=== PATIENT | female | born 1995 | race Caucasian/White ===

== ENCOUNTER → 2017-02-18 | Outpatient (REF) | payer MEDICARE, MEDICAID | LOC: M SFHCPLAZ 11:54 | PROVIDERS: ATTEND Family Medicine | DX: Z91.040 Latex allergy status (principal); E03.9 Hypothyroidism, unspecified ==

== ENCOUNTER → 2018-08-09 | Outpatient (REF) | payer MEDICARE, MEDICAID | LOC: M SFHCPLAZ 13:48 | DX: E03.9 Hypothyroidism, unspecified (principal) ==

== ENCOUNTER → 2019-12-01 | Outpatient (CLI) | payer MEDICARE, MEDICAID ==
--- NOTE | 2019-12-01 12:23 | REP ---
Renal ultrasound: Comparison is 12/27/2009. The patient has history of neurogenic bladder. The right kidney measures 9.5 x 3.6 x 3.0 cm. The left kidney measures 9.7 x 2.5 x 2.7 meters. The kidneys are in the low normal size range. There is mild bilateral hydronephrosis. This is unchanged from the prior study. Renal cortical echogenicity is normal bilaterally. There are no solid or cystic renal masses. There are no renal calculi. The patient has a tracheostomy and is unable to suspend respirations. Additionally, the acoustic windows for ultrasound scanning are limited. Therefore, the study is technically difficult. Impression: Chronic mild hydronephrosis. Technically difficult study. Electronically Signed by Leroy Friedman MD 12/01/2019 12:14 P
--- NOTE | 2019-12-01 12:27 | REP ---
Bladder ultrasound: Comparison is 12/07/2009. The patient has history of neurogenic bladder. The bladder castillo are thickened and trabeculated. This is similar to the prior study and consistent with neurogenic bladder. There are small bladder diverticula bilaterally. These are similar to the prior study. There is no postvoid image as the patient performs periodic bladder catheterization. Impression: There is no interval change. Electronically Signed by Leroy Friedman MD 12/01/2019 12:19 P
== END ==
LOC: M RAD 10:01
PROVIDERS: ATTEND Nurse Practitioner Family
DX: N31.9 Neuromuscular dysfunction of bladder, unspecified (principal); N32.3 Diverticulum of bladder; N13.30 Unspecified hydronephrosis

== ENCOUNTER → 2020-01-10 | Outpatient (REF) | payer MEDICARE, MEDICAID | LOC: M SFHCPLAZ 14:15 | PROVIDERS: ATTEND Family Medicine | DX: E03.9 Hypothyroidism, unspecified (principal) ==

== ENCOUNTER → 2020-12-24 | Outpatient (CLI) | payer MEDICARE, MEDICAID ==
[2020-12-24 15:04] LABS: BLOOD UREA NITROGEN 22 MG/DL (7-18); CREATININE FOR GFR 0.51 MG/DL (0.55-1.30); GLUCOSE, FASTING 84 MG/DL (70-100)
[2020-12-24 15:05] LABS: ALBUMIN 3.7 GM/DL (3.2-5.2); ALT/SGPT 21 U/L (12-78); BILIRUBIN,TOTAL 0.3 MG/DL (0.2-1.0); CALCIUM LEVEL 10.1 MG/DL (8.5-10.1); CARBON DIOXIDE LEVEL 28 MEQ/L (21-32); CHLORIDE LEVEL 103 MEQ/L (98-107); CHOLESTEROL LEVEL 180 MG/DL (<200); CHOLESTEROL RISK RATIO 2.903 (<5); GLOMERULAR FILTRATION RATE > 60.0 (>60); HDL CHOLESTEROL 62 MG/DL (>40); LDL CHOLESTEROL 89 MG/DL (<100); NON-HDL-C 118 MG/DL; POTASSIUM SERUM 4.3 MEQ/L (3.5-5.1); SODIUM LEVEL 140 MEQ/L (136-145); TOTAL PROTEIN 7.7 GM/DL (6.4-8.2); TRIGLYCERIDES LEVEL 144 MG/DL (<150)
== END ==
LOC: M PLALAB 10:49
PROVIDERS: ATTEND Student in an Organized Health Care Education/Training Program
DX: E03.9 Hypothyroidism, unspecified (principal); Z93.1 Gastrostomy status

== ENCOUNTER → 2021-01-14 | Outpatient (CLI) | payer MEDICARE, MEDICAID ==
--- NOTE | 2021-01-14 15:36 | REP ---
INDICATION: N13.30 HYDRONEPHROSIS. COMPARISON: Renal ultrasound dated 12/01/2019. TECHNIQUE: Multiple real-time and color Doppler ultrasound images of the kidneys and bladder. FINDINGS: The right kidney measures 9.3 x 4.1 x 2.7 cm. The left kidney measures 9.0 x 3.8 x 4.1 cm. The kidneys are in the low normal size range. There is mild/moderate hydronephrosis bilaterally. There are multiple ring shaped echogenic foci in the right renal pelvis compatible with numerous right renal calculi or possibly calcified right renal pyramids. This is a distinct change from the comparison study. There is a 6 x 4 mm left renal calculus. No other left renal calculi are identified. No definite solid or cystic renal masses are identified. The study is technically difficult because of the patient's inability to breath hold during the examination and because of limited acoustic window. Bladder: Gallardo catheter balloon is identified. The bladder is nondistended and cannot be otherwise evaluated by ultrasound at this time period. IMPRESSION: Mild/moderate bilateral hydronephrosis. Probable multiple right renal calculi as a distinct change from the prior study. Single left renal calculus. No definite solid or cystic renal masses. Bladder cannot be adequately evaluated by ultrasound as it is nondistended. Gallardo catheter is identified. Technically difficult study. Consider follow-up CT. If felt clinically indicated. To evaluate for renal calculi. <Electronically signed by Leroy Friedman > 01/14/21 1535
== END ==
LOC: M WHC 12:01
PROVIDERS: ATTEND Nurse Practitioner Family
DX: N13.30 Unspecified hydronephrosis (principal); N20.0 Calculus of kidney

== ENCOUNTER → 2021-03-07 | Outpatient (CLI) | payer MEDICARE, MEDICAID ==
[~2021-03-07] MED LIST: ACET325C5 GT; ALBU83IN INH; CALC1CHW4 PO; CETI5SOL3 PO; DIMEELX PO; DITR5TAB PO; EPIP0.3I2 IM; FLUT15.820; FLUT44IN INH; LEVO50TA5 GT; MIRA3350 GT; MULTLIQ7 PO; SYNT75TA GT; VITA-243 PO; VITA200012 PO
== END ==
LOC: M LABSMTC 11:06
PROVIDERS: ATTEND Anesthesiology
DX: Z01.818 Encounter for other preprocedural examination (principal); Z11.52 Encounter for screening for COVID-19

== ENCOUNTER → 2021-03-12 | Outpatient (CLI) | payer MEDICARE, MEDICAID ==
[~2021-03-12] MED LIST changes: +EMLA CREAM 5GM TUBE (LIDOCAINE/PRILOCAINE) As Ordered ONE; +ISOVUE-370 76% 100ML VIAL As Ordered ONE
[2021-03-12 07:53] VITALS: BP 139/80
--- NOTE | 2021-03-12 10:34 | REP ---
INDICATION: HYDRONEPHROSIS, KIDNEY STONES COMPARISON: Ultrasound 01/14/2021. TECHNIQUE: CT Scan of the abdomen and pelvis was performed without intravenous contrast. Sagittal and coronal reconstruction images performed. FINDINGS: Lung bases: Unremarkable. Liver: Grossly unremarkable. Gallbladder: Unremarkable. Spleen: Grossly unremarkable. Adrenals: Normal. Pancreas: Grossly unremarkable.. Kidneys: There is bilateral renal cortical thinning. There is moderate bilateral hydronephrosis. Multiple ill-defined calcifications in the region of the lower pole the right kidney likely represent calcifications of renal pyramids. Similar appearing calcifications are seen to a lesser extent involving the mid to lower left kidney. Ureters demonstrate no dilatation or calculus. Small and large bowel: There is a large amount of fecal material throughout the colon. There is a PEG tube in good position within the stomach. Free fluid: There is small amount of free fluid in the pelvis. Abdominal aorta: No aneurysm. Adenopathy: None. Appendix: Not inflamed. Osseous structures: There is severe right rotatory thoracolumbar scoliosis. Spinal dysraphism is noted once again of the lower lumbar spine. Pelvis: No mass. There is a Gallardo catheter in a collapsed urinary bladder. TONGUE AND GROOVE MACHINE OPERATOR shunt enters the right upper quadrant of the abdomen with the distal tip in the pelvis. IMPRESSION: There is bilateral renal cortical thinning. There is moderate bilateral hydronephrosis. Multiple ill-defined calcifications in the region of the lower pole the right kidney likely represent calcifications of renal pyramids. Similar appearing calcifications are seen to a lesser extent involving the mid to lower left kidney. <Electronically signed by Leroy Anna > 03/12/21 1031
== END ==
LOC: M SDC 07:38
PROVIDERS: ATTEND Nurse Practitioner Family
DX: N13.30 Unspecified hydronephrosis (principal); N20.0 Calculus of kidney

== ENCOUNTER → 2021-03-19 | Outpatient (REF) | payer MEDICARE, MEDICAID ==
[~2021-03-19] MED LIST changes: -EMLA CREAM 5GM TUBE (LIDOCAINE/PRILOCAINE) As Ordered ONE; -ISOVUE-370 76% 100ML VIAL As Ordered ONE
== END ==
LOC: M SMT 12:36
PROVIDERS: ATTEND Urology
DX: N31.9 Neuromuscular dysfunction of bladder, unspecified (principal); Z79.899 Other long term (current) drug therapy
CPT/HCPCS: 87088; 87186; G0463

== ENCOUNTER → 2021-04-08 | Outpatient (REF) | payer MEDICARE, MEDICAID ==
[2021-04-08 19:42] LABS: ALBUMIN 3.9 GM/DL (3.2-5.2); ALT/SGPT 19 U/L (12-78); BILIRUBIN,TOTAL 0.2 MG/DL (0.2-1.0); BLOOD UREA NITROGEN 22 MG/DL (7-18); CALCIUM LEVEL 9.5 MG/DL (8.5-10.1); CARBON DIOXIDE LEVEL 27 MEQ/L (21-32); CHLORIDE LEVEL 105 MEQ/L (98-107); CREATININE FOR GFR 0.44 MG/DL (0.55-1.30); GLOMERULAR FILTRATION RATE > 60.0 (>60); GLUCOSE, FASTING 79 MG/DL (70-100); POTASSIUM SERUM 4.2 MEQ/L (3.5-5.1); SODIUM LEVEL 139 MEQ/L (136-145); TOTAL PROTEIN 7.8 GM/DL (6.4-8.2)
== END ==
LOC: M SFHCPLAZ 14:12
PROVIDERS: ATTEND Family Medicine
DX: Z87.440 Personal history of urinary (tract) infections (principal)

== ENCOUNTER → 2021-05-16 | Outpatient (CLI) | payer MEDICARE, MEDICAID | LOC: M PT 07:36 | PROVIDERS: ATTEND Internal Medicine Nephrology | DX: Q05.1 Thoracic spina bifida with hydrocephalus (principal) ==

== ENCOUNTER 2021-06-24 15:51 | Inpatient (IN) | payer MEDICARE, MEDICAID ==
[~2021-06-24] VITALS: Ht 121.9 cm; Wt 29.9 kg
[~2021-06-24 15:51] MED LIST changes: +CETI5SOL3 GT; -CETI5SOL3 PO; -FLUT15.820; +FLUT15.820 NARES; +MULTLIQ7 GT; -MULTLIQ7 PO; +VITA200012 GT; -VITA200012 PO
[2021-06-24 17:37] LABS: MEAN CORPUSCULAR HEMOGLOBIN 29.2 pg (27.0-33.0); MEAN CORPUSCULAR HGB CONC 32.7 g/dl (32.0-36.5); MEAN CORPUSCULAR VOLUME 89.4 fl (80.0-96.0); PLATELET COUNT, AUTOMATED 256 10^3/uL (150-450); RED BLOOD COUNT 5.48 10^6/uL (4.00-5.40); WHITE BLOOD COUNT 15.1 10^3/uL (4.0-10.0)
[2021-06-24] MEDS ORDERED: OXYB5TAB10 GT (17:41)
[2021-06-24] MEDS ORDERED: CALC1250 GT (17:41)
[2021-06-24] MEDS ORDERED: ASCO250T20 GT (17:41)
[2021-06-24] MEDS ORDERED: ACET160S6 GT (17:44)
[2021-06-24] MEDS ORDERED: HOME MED LIST COMPLETE! XX SCH (17:45)
[2021-06-24 18:01] LABS: ALBUMIN 3.5 GM/DL (3.2-5.2); ALT/SGPT 17 U/L (12-78); BILIRUBIN,TOTAL 0.6 MG/DL (0.2-1.0); BLOOD UREA NITROGEN 20 MG/DL (7-18); CALCIUM LEVEL 10.2 MG/DL (8.5-10.1); CARBON DIOXIDE LEVEL 27 MEQ/L (21-32); CHLORIDE LEVEL 100 MEQ/L (98-107); CREATININE FOR GFR 0.54 MG/DL (0.55-1.30); GLOMERULAR FILTRATION RATE > 60.0 (>60); GLUCOSE, FASTING 98 MG/DL (70-100); POTASSIUM SERUM 4.5 MEQ/L (3.5-5.1); SODIUM LEVEL 134 MEQ/L (136-145); TOTAL PROTEIN 7.4 GM/DL (6.4-8.2)
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
[2021-06-24] MEDS ORDERED: ALBUTEROL SULFATE 2.5 MG/0.5 ML INH NEB SOLN INH PRN (18:35)
[2021-06-24] MEDS ORDERED: PILL CUTTER 1 EACH XX PRN (19:05)
[2021-06-24] MEDS: FLUTICASONE HFA 44 MCG 10.6GM INHALER (FLOVENT) INH SCH (20:00)
[2021-06-24] MEDS: CHLORHEXIDINE GLUCONATE 0.12 % 15ML UDC (PERIDEX ORAL RINSE) MT SCH (20:32)
[2021-06-24] MEDS: HEPARIN SOD (PORCINE) 5000UNITS/ML 1ML VIAL/SYRINGE SQ SCH (20:33)
[2021-06-24] MEDS: ACETAMINOPHEN TAB 650MG DOSE (2X325MG) PO PRN (20:34)
[2021-06-24] MEDS: oxyBUTYnin 5 MG TAB GT SCH (20:34)
[2021-06-24] MEDS ORDERED: CALCIUM CARB SUSP 1250MG/5ML UNIT DOSE CUP GT SCH (21:00)
[2021-06-24 22:00] VITALS: BP 109/73
[2021-06-25] MEDS ORDERED: LEVOTHYROXINE 50MCG TABLET (0.05MG) GT SCH (06:00)
[2021-06-25] MEDS: ACETAMINOPHEN TAB 650MG DOSE (2X325MG) PO PRN (06:17)
[2021-06-25] MEDS: HEPARIN SOD (PORCINE) 5000UNITS/ML 1ML VIAL/SYRINGE SQ SCH ×2 (06:18→14:53)
[2021-06-25 06:29] VITALS: BP 97/69
[2021-06-25 08:15] LABS: BASO % 0.3 % (0.0-1.0); EOS % 0.3 % (0.0-3.0); HEMATOCRIT 45.9 % (36.0-47.0); HEMOGLOBIN 15.1 g/dl (12.0-15.5); LYMPH # 1.4 10^3/uL (1.5-5.0); LYMPH % 11.7 % (24.0-44.0); MEAN CORPUSCULAR HEMOGLOBIN 29.3 pg (27.0-33.0); MEAN CORPUSCULAR HGB CONC 32.9 g/dl (32.0-36.5); MONO # 0.7 10^3/uL (0.0-0.8); MONO % 5.7 % (2.0-8.0); NEUTROPHILS # 9.9 10^3/uL (1.5-8.5); NEUTROPHILS % 81.7 % (36.0-66.0); PLATELET COUNT, AUTOMATED 235 10^3/uL (150-450); RED BLOOD COUNT 5.16 10^6/uL (4.00-5.40); WHITE BLOOD COUNT 12.1 10^3/uL (4.0-10.0)
[2021-06-25 08:50] LABS: BLOOD UREA NITROGEN 24 MG/DL (7-18); CALCIUM LEVEL 9.4 MG/DL (8.5-10.1); CARBON DIOXIDE LEVEL 27 MEQ/L (21-32); CHLORIDE LEVEL 103 MEQ/L (98-107); CREATININE FOR GFR 0.48 MG/DL (0.55-1.30); GLOMERULAR FILTRATION RATE > 60.0 (>60); GLUCOSE, FASTING 93 MG/DL (70-100); MAGNESIUM LEVEL 2.6 MG/DL (1.8-2.4); POTASSIUM SERUM 4.6 MEQ/L (3.5-5.1); SODIUM LEVEL 137 MEQ/L (136-145)
[2021-06-25] MEDS ORDERED: MIRALAX *UNIT DOSE* 17GM PACKET GT SCH (09:00)
[2021-06-25] MEDS ORDERED: ENOXAPARIN 40MG/0.4ML SYRINGE (J1650 PER 10MG) SC SCH (09:00)
[2021-06-25] MEDS ORDERED: CETIRIZINE (ZyrTEC) 5 MG/5 ML UDC DYE FREE GT SCH (09:00)
[2021-06-25] MEDS ORDERED: ASCORBIC ACID 250 MG TAB GT SCH (09:00)
[2021-06-25] MEDS ORDERED: FLUTICASONE PROP 0.05% NASAL SPRAY 16 GM (FLONASE) NARES SCH (09:00)
[2021-06-25] MEDS: oxyBUTYnin 5 MG TAB GT SCH ×2 (09:09→14:53)
[2021-06-25] MEDS: CHLORHEXIDINE GLUCONATE 0.12 % 15ML UDC (PERIDEX ORAL RINSE) MT SCH (09:09)
[2021-06-25] MEDS: FLUTICASONE HFA 44 MCG 10.6GM INHALER (FLOVENT) INH SCH (09:44)
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
[2021-06-25 14:00] VITALS: BP 148/99
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
[2021-06-26] MEDS ORDERED: LEVOTHYROXINE 75MCG TABLET (0.075MG) GT SCH (06:00)
== END 2021-06-25 17:10 | disposition home health service (06) | DRG 935 ==
LOC: M MS5PR 16:11
PROVIDERS: ADMIT Family Medicine; ATTEND Internal Medicine
DX: T24.211A Burn of second degree of right thigh, initial encounter (principal); Q07.03 Arnold-Chiari syndrome with spina bifida and hydrocephalus; Q67.5 Congenital deformity of spine; G47.35 Congenital central alveolar hypoventilation syndrome; X11.8XXA Contact with other hot tap-water, initial encounter; Y93.E1 Activity, personal bathing and showering; Y92.012 Bathroom of single-family (private) house as the place of occurrence of the external cause; Y99.8 Other external cause status; N31.9 Neuromuscular dysfunction of bladder, unspecified; T31.0 Burns involving less than 10% of body surface; N18.9 Chronic kidney disease, unspecified; E03.9 Hypothyroidism, unspecified; R32 Unspecified urinary incontinence; Z93.0 Tracheostomy status; Z98.2 Presence of cerebrospinal fluid drainage device; Z93.1 Gastrostomy status; Z79.899 Other long term (current) drug therapy; Z20.822 Contact with and (suspected) exposure to COVID-19

== ENCOUNTER → 2021-06-29 | Outpatient (REF) | payer MEDICARE, MEDICAID ==
[~2021-06-29] MED LIST changes: +ACET160S6 GT; +ASCO250T20 GT; +CALC1250 GT; +OXYB5TAB10 GT
== END ==
LOC: M LAB REF 14:00
PROVIDERS: ATTEND Family Medicine
DX: N30.00 Acute cystitis without hematuria (principal)

== ENCOUNTER → 2022-03-11 | Outpatient (CLI) | payer MEDICARE, MEDICAID | LOC: M WHC 09:50 | PROVIDERS: ATTEND Nurse Practitioner Women's Health | DX: N31.9 Neuromuscular dysfunction of bladder, unspecified (principal); N13.30 Unspecified hydronephrosis ==

== ENCOUNTER → 2022-03-25 | Outpatient (CLI) | payer MEDICARE, MEDICAID ==
[~2022-03-25] MED LIST changes: +ALBU2.5V10 INH; -ALBU83IN INH
[2022-03-25 13:18] LABS: HEMATOCRIT 44.5 % (36.0-47.0); HEMOGLOBIN 14.2 g/dl (12.0-15.5); MEAN CORPUSCULAR HEMOGLOBIN 28.6 pg (27.0-33.0); MEAN CORPUSCULAR HGB CONC 31.9 g/dl (32.0-36.5); MEAN CORPUSCULAR VOLUME 89.5 fl (80.0-96.0); PLATELET COUNT, AUTOMATED 292 10^3/uL (150-450); RED BLOOD COUNT 4.97 10^6/uL (4.00-5.40); WHITE BLOOD COUNT 5.3 10^3/uL (4.0-10.0)
[2022-03-25 13:44] LABS: ALBUMIN 3.8 GM/DL (3.2-5.2); ALT/SGPT 22 U/L (12-78); BILIRUBIN,TOTAL 0.2 MG/DL (0.2-1.0); BLOOD UREA NITROGEN 24 MG/DL (7-18); CALCIUM LEVEL 10.1 MG/DL (8.5-10.1); CARBON DIOXIDE LEVEL 27 MEQ/L (21-32); CHLORIDE LEVEL 105 MEQ/L (98-107); CREATININE FOR GFR 0.53 MG/DL (0.55-1.30); GLOMERULAR FILTRATION RATE > 60.0 (>60); GLUCOSE, FASTING 86 MG/DL (70-100); POTASSIUM SERUM 4.5 MEQ/L (3.5-5.1); SODIUM LEVEL 137 MEQ/L (136-145); TOTAL PROTEIN 7.8 GM/DL (6.4-8.2)
== END ==
LOC: M PLALAB 11:55
PROVIDERS: ATTEND Urology
DX: N20.0 Calculus of kidney (principal)

== ENCOUNTER → 2022-04-03 | Outpatient (CLI) | payer MEDICARE, MEDICAID ==
[~2022-04-03] MED LIST changes: +ISOVUE-370 76% 100ML VIAL As Ordered ONE
== END ==
LOC: M RAD 09:43
PROVIDERS: ATTEND Urology
DX: N20.0 Calculus of kidney (principal)
CPT/HCPCS: 74178; Q9967

== ENCOUNTER → 2022-07-11 | Outpatient (CLI) | payer MEDICARE, MEDICAID ==
[~2022-07-11] MED LIST changes: -ISOVUE-370 76% 100ML VIAL As Ordered ONE
[2022-07-11 14:54] LABS: HEMATOCRIT 45.8 % (36.0-47.0); HEMOGLOBIN 14.1 g/dl (12.0-15.5); MEAN CORPUSCULAR HEMOGLOBIN 27.9 pg (27.0-33.0); MEAN CORPUSCULAR HGB CONC 30.8 g/dl (32.0-36.5); MEAN CORPUSCULAR VOLUME 90.5 fl (80.0-96.0); PLATELET COUNT, AUTOMATED 283 10^3/uL (150-450); RED BLOOD COUNT 5.06 10^6/uL (4.00-5.40); WHITE BLOOD COUNT 4.6 10^3/uL (4.0-10.0)
[2022-07-11 15:10] LABS: INR 0.92; PROTHROMBIN TIME 12.8 SECONDS (12.7-14.5)
[2022-07-11 15:41] LABS: ALBUMIN 3.7 GM/DL (3.2-5.2); ALT/SGPT 25 U/L (12-78); BILIRUBIN,TOTAL 0.2 MG/DL (0.2-1.0); BLOOD UREA NITROGEN 20 MG/DL (7-18); CALCIUM LEVEL 10.3 MG/DL (8.5-10.1); CARBON DIOXIDE LEVEL 27 MEQ/L (21-32); CHLORIDE LEVEL 103 MEQ/L (98-107); GLOMERULAR FILTRATION RATE > 60.0 (>60); GLUCOSE, FASTING 71 MG/DL (70-100); POTASSIUM SERUM 3.9 MEQ/L (3.5-5.1); SODIUM LEVEL 138 MEQ/L (136-145); TOTAL PROTEIN 7.7 GM/DL (6.4-8.2)
== END ==
LOC: M PLAIMG 11:58
PROVIDERS: ATTEND Urology
DX: N20.0 Calculus of kidney (principal); Z79.01 Long term (current) use of anticoagulants

== ENCOUNTER → 2022-07-16 | Outpatient (CLI) | payer MEDICARE, MEDICAID | LOC: M LABSMTC 11:00 | PROVIDERS: ATTEND Anesthesiology | DX: Z01.818 Encounter for other preprocedural examination (principal); Z11.52 Encounter for screening for COVID-19 ==

== ENCOUNTER → 2022-07-18 | Outpatient (CLI) | payer MEDICARE, MEDICAID ==
[~2022-07-18] MED LIST changes: +JEVILIQ12 PO; +STERSOL2 GT; +[UNRECOGNIZED DRUG - REMARK]
[2022-07-18 15:29] LABS: ALBUMIN 3.8 GM/DL (3.2-5.2); BLOOD UREA NITROGEN 19 MG/DL (7-18); CALCIUM LEVEL 10.3 MG/DL (8.5-10.1); CARBON DIOXIDE LEVEL 28 MEQ/L (21-32); CHLORIDE LEVEL 105 MEQ/L (98-107); CREATININE FOR GFR 0.46 MG/DL (0.55-1.30); FREE T4 1.21 NG/DL (0.76-1.46); GLOMERULAR FILTRATION RATE > 60.0 (>60); GLUCOSE, FASTING 82 MG/DL (70-100); POTASSIUM SERUM 4.2 MEQ/L (3.5-5.1); SODIUM LEVEL 139 MEQ/L (136-145)
[2022-07-18 16:22] LABS: PTH INTACT 21.7 PG/ML (18.5-88.0); TOTAL 25(OH) VITAMIN D 64.4 NG/ML (30.0-100.0)
== END ==
LOC: M PLALAB 10:27
PROVIDERS: ATTEND Family Medicine
DX: E21.3 Hyperparathyroidism, unspecified (principal); E55.9 Vitamin D deficiency, unspecified; Z79.899 Other long term (current) drug therapy

== ENCOUNTER 2022-07-21 09:08 | Day surgery (SDC) | payer MEDICARE, MEDICAID ==
[~2022-07-21] VITALS: Ht 121.9 cm; Wt 30.8 kg
[~2022-07-21 09:08] MED LIST changes: +ceFAZolin SOD 2 GM in IV 1 EA IV ONE; +ceFAZolin SOD 2 GM in IV 1 EA IV SCH
[2022-07-21] MEDS ORDERED: LR 1,000 ML IV SCH ×2 (09:30→13:20)
[2022-07-21] MEDS ORDERED: LIDOCAINE 1% SDV 5ML VIAL SC PRN (10:30)
[2022-07-21] MEDS ORDERED: LIDOCAINE 2% 100MG/5ML SDV (FOR ANES.) As Ordered ONE (11:09)
[2022-07-21] MEDS ORDERED: propofoL 200 MG/20 ML VIAL As Ordered ONE (11:09)
[2022-07-21] MEDS ORDERED: ROCURONIUM BROMIDE 50 MG/5 ML VIAL As Ordered ONE (11:10)
[2022-07-21] MEDS ORDERED: ISOVUE-300 61% 50ML VIAL As Ordered ONE (11:11)
[2022-07-21] MEDS ORDERED: fentaNYL 100 MCG/2 ML INJECTION As Ordered ONE (11:13)
[2022-07-21] MEDS ORDERED: MIDAZOLAM INJ 2MG/2ML VIAL (J2250 PER 1MG) As Ordered ONE (11:13)
[2022-07-21] MEDS ORDERED: dexameTHASONE 4 MG/ML 1ML VIAL (J1100 PER 1MG) As Ordered ONE (11:56)
[2022-07-21] MEDS ORDERED: ONDANSETRON 4MG 2ML VIAL As Ordered ONE (11:56)
[2022-07-21] MEDS ORDERED: ePHEDrine SULFATE 25 MG/5 ML(5MG/ML) SYRINGE As Ordered ONE (12:34)
[2022-07-21] MEDS ORDERED: oxyCODONE 5MG TAB PO PRN (13:20)
[2022-07-21] MEDS ORDERED: METOCLOPRAMIDE INJ 10MG/2ML VIAL (J2765 PER 1) IV PRN (13:20)
[2022-07-21] MEDS ORDERED: ONDANSETRON 4MG 2ML VIAL IV PRN (13:20)
[2022-07-21] MEDS ORDERED: fentaNYL 100 MCG/2 ML INJECTION IV PRN (13:20)
[2022-07-21 13:34] VITALS: BP 136/92
[2022-07-21] MEDS ORDERED: SEVOFLURANE INHAL SOLN 250 ML BTL As Ordered ONE (15:53)
== END 2022-07-21 14:21 | disposition home or self-care (01) ==
LOC: M SDC 09:08
PROVIDERS: ATTEND Urology
DX: N20.0 Calculus of kidney (principal); Q05.9 Spina bifida, unspecified; N31.9 Neuromuscular dysfunction of bladder, unspecified; Z96.0 Presence of urogenital implants; R93.41 Abnormal radiologic findings on diagnostic imaging of renal pelvis, ureter, or bladder
CPT/HCPCS: 52356; 76000; 87086; C1769; C2617; J0690; J1100; J2250; J2405; J3010; Q9967

== ENCOUNTER → 2023-03-04 | Outpatient (CLI) | payer MEDICARE, MEDICAID ==
[~2023-03-04] MED LIST changes: -ceFAZolin SOD 2 GM in IV 1 EA IV ONE; -ceFAZolin SOD 2 GM in IV 1 EA IV SCH
== END ==
LOC: M PLAIMG 11:31
PROVIDERS: ATTEND Urology
DX: K59.00 Constipation, unspecified (principal); M41.25 Other idiopathic scoliosis, thoracolumbar region; N31.9 Neuromuscular dysfunction of bladder, unspecified

== ENCOUNTER → 2023-03-04 | Outpatient (REF) | payer MEDICARE, MEDICAID ==
[2023-03-04 16:36] LABS: ALKALINE PHOSPHATASE 80 U/L (46-116); ALT/SGPT 18 U/L (7.0-40); AST/SGOT 26 U/L (<34); BILIRUBIN,TOTAL 0.3 MG/DL (0.3-1.2); BLOOD UREA NITROGEN 14 MG/DL (9-23); CALCIUM LEVEL 9.6 MG/DL (8.5-10.1); CARBON DIOXIDE LEVEL 24 MMOL/L (20-31); CHLORIDE LEVEL 104 MMOL/L (98-107); CREATININE FOR GFR 0.42 MG/DL (0.55-1.30); GLOMERULAR FILTRATION RATE > 60.0 (>60); GLUCOSE, FASTING 76 MG/DL (60-100); POTASSIUM SERUM 4.1 MMOL/L (3.5-5.1); SODIUM LEVEL 138 MMOL/L (136-145); TOTAL PROTEIN 7.5 G/DL (5.7-8.2)
[2023-03-04 16:39] LABS: FREE T4 1.51 NG/DL (0.89-1.76)
[2023-03-04 17:41] LABS: PTH INTACT 47.4 PG/ML (18.5-88.0)
[2023-03-04 17:45] LABS: THYROID STIMULATING HORMONE 2.689 uIU/ML (0.55-4.78)
== END ==
LOC: M SFHCPLAZ 13:02
PROVIDERS: ATTEND Physician Assistant
DX: E21.3 Hyperparathyroidism, unspecified (principal); E03.9 Hypothyroidism, unspecified

== ENCOUNTER → 2024-03-09 | Outpatient (CLI) | payer MEDICARE, MEDICAID ==
[~2024-03-09] MED LIST changes: -OXYB5TAB10 GT; +OXYB5TAB14 GT
== END ==
LOC: M PLAIMG 09:56
PROVIDERS: ATTEND Urology
DX: N31.9 Neuromuscular dysfunction of bladder, unspecified (principal)

== ENCOUNTER → 2024-03-31 | Outpatient (CLI) | payer MEDICARE, MEDICAID ==
[~2024-03-31] MED LIST changes: -CALC1250 GT; +[UNRECOGNIZED DRUG - CODE] GT
[2024-03-31 15:03] LABS: HEMATOCRIT 45.8 % (36.0-47.0); HEMOGLOBIN 14.1 g/dl (12.0-15.5); MEAN CORPUSCULAR HEMOGLOBIN 29.3 pg (27.0-33.0); MEAN CORPUSCULAR HGB CONC 30.8 g/dl (32.0-36.5); MEAN CORPUSCULAR VOLUME 95.2 fl (80.0-96.0); PLATELET COUNT, AUTOMATED 226 10^3/uL (150-450); RED BLOOD COUNT 4.81 10^6/uL (4.00-5.40); WHITE BLOOD COUNT 4.4 10^3/uL (4.0-10.0)
[2024-03-31 15:30] LABS: ALBUMIN 3.7 G/DL (3.2-5.2); ALKALINE PHOSPHATASE 63 U/L (46-116); ALT/SGPT 26 U/L (7.0-40); AST/SGOT 32 U/L (<34); BILIRUBIN,TOTAL 0.3 MG/DL (0.3-1.2); BLOOD UREA NITROGEN 18 MG/DL (9-23); CALCIUM LEVEL 9.4 MG/DL (8.5-10.1); CARBON DIOXIDE LEVEL 23 MMOL/L (20-31); CHLORIDE LEVEL 101 MMOL/L (98-107); CREATININE FOR GFR 0.37 MG/DL (0.55-1.30); GLOMERULAR FILTRATION RATE > 60.0 (>60); GLUCOSE, FASTING 168 MG/DL (60-100); POTASSIUM SERUM 4.2 MMOL/L (3.5-5.1); SODIUM LEVEL 135 MMOL/L (136-145); TOTAL PROTEIN 6.9 G/DL (5.7-8.2)
[2024-03-31 15:31] LABS: THYROID STIMULATING HORMONE 1.772 uIU/ML (0.55-4.78)
== END ==
LOC: M PLALAB 10:08
PROVIDERS: ATTEND Urology
DX: N31.9 Neuromuscular dysfunction of bladder, unspecified (principal); Z79.899 Other long term (current) drug therapy

== ENCOUNTER → 2025-03-01 | Outpatient (CLI) | payer MEDICARE, MEDICAID | LOC: M WHC 13:07 | PROVIDERS: ATTEND Urology | DX: N31.9 Neuromuscular dysfunction of bladder, unspecified (principal) ==

== ENCOUNTER → 2025-03-08 | Outpatient (CLI) | payer MEDICARE, MEDICAID ==
[2025-03-08 14:24] LABS: BLOOD UREA NITROGEN 22 MG/DL (9-23); CALCIUM LEVEL 9.4 MG/DL (8.5-10.1); CARBON DIOXIDE LEVEL 28 MMOL/L (20-31); CHLORIDE LEVEL 101 MMOL/L (98-107); CREATININE FOR GFR 0.43 MG/DL (0.55-1.30); GLOMERULAR FILTRATION RATE > 90.0 (>60); GLUCOSE, FASTING 149 MG/DL (60-100); POTASSIUM SERUM 3.9 MMOL/L (3.5-5.1); SODIUM LEVEL 140 MMOL/L (136-145)
== END ==
LOC: M PLALAB 10:47
PROVIDERS: ATTEND Urology
DX: N20.0 Calculus of kidney (principal)

== ENCOUNTER → 2025-06-09 | Outpatient (REF) | payer MEDICARE, MEDICAID | LOC: M SFHCPLAZ 17:23 | DX: R19.7 Diarrhea, unspecified (principal); A04.8 Other specified bacterial intestinal infections ==

== ENCOUNTER → 2025-06-11 | Outpatient (CLI) | payer MEDICARE, MEDICAID ==
[2025-06-11 11:18] LABS: BASO # 0.0 10^3/uL (0.0-0.2); BASO % 0.4 % (0.0-1.0); EOS # 0.0 10^3/uL (0.0-0.5); EOS % 0.6 % (0.0-3.0); LYMPH # 0.7 10^3/uL (1.5-5.0); LYMPH % 13.6 % (24.0-44.0); MONO # 0.3 10^3/uL (0.0-0.8); MONO % 6.2 % (2.0-8.0); NEUTROPHILS # 3.8 10^3/uL (1.5-8.5); NEUTROPHILS % 78.8 % (36.0-66.0)
[2025-06-11 11:40] LABS: ALT/SGPT 27 U/L (7.0-40); AST/SGOT 33 U/L (<34); CALCIUM LEVEL 8.8 MG/DL (8.5-10.1); CARBON DIOXIDE LEVEL 22 MMOL/L (20-31); CHLORIDE LEVEL 99 MMOL/L (98-107); CREATININE FOR GFR 0.39 MG/DL (0.55-1.30); GLOMERULAR FILTRATION RATE > 90.0 (>60); POTASSIUM SERUM 3.8 MMOL/L (3.5-5.1); SODIUM LEVEL 135 MMOL/L (136-145)
== END ==
LOC: M LAB 10:44
DX: R19.7 Diarrhea, unspecified (principal)

== ENCOUNTER → 2025-07-05 | Outpatient (CLI) | payer MEDICARE, MEDICAID ==
[2025-07-05 15:17] LABS: PLATELET COUNT, AUTOMATED 373 10^3/uL (150-450)
[2025-07-05 15:40] LABS: ALT/SGPT 22 U/L (7.0-40); AST/SGOT 25 U/L (<34); CALCIUM LEVEL 10.2 MG/DL (8.5-10.1); CARBON DIOXIDE LEVEL 28 MMOL/L (20-31); CHLORIDE LEVEL 98 MMOL/L (98-107); CREATININE FOR GFR 0.38 MG/DL (0.55-1.30); GLOMERULAR FILTRATION RATE > 90.0 (>60); POTASSIUM SERUM 4.4 MMOL/L (3.5-5.1); SODIUM LEVEL 140 MMOL/L (136-145)
== END ==
LOC: M PLALAB 11:37
DX: A49.8 Other bacterial infections of unspecified site (principal)

== ENCOUNTER → 2025-07-06 | Outpatient (REF) | payer MEDICARE, MEDICAID | LOC: M SFHCPLAZ 10:25 | PROVIDERS: ATTEND Physician Assistant | DX: A49.8 Other bacterial infections of unspecified site (principal); R19.5 Other fecal abnormalities; R19.7 Diarrhea, unspecified; A04.8 Other specified bacterial intestinal infections ==